=== PATIENT | female | born 1955 | race Caucasian/White ===

== ENCOUNTER 2016-06-07 11:35 | Emergency (ER) | payer BC ==
[2016-06-07 11:53] VITALS: BP 127/74
[2016-06-07] MEDS ORDERED: predniSONE TAB* 20 MG PO ONE (12:39)
--- NOTE | 2016-06-07 12:42 | UC ---
Respiratory Complaint HPI - HPI Summary HPI Summary: allergies (seasonal) started a week ago now with wheezing and productive cough her inhaler is - History of Current Complaint Chief Complaint: UCRespiratory Stated Complaint: SORE THROAT,EAR PAIN,COUGH Time Seen by Provider: 06/07/16 12:32 Hx Obtained From: Patient Onset/Duration: Gradual Onset, Lasting Days Timing: Constant Severity Initially: Mild Severity Currently: Moderate Pain Intensity: 2 Pain Scale Used: 0-10 Numeric Character: Cough: Productive Aggravating Factors: Allergens, Deep Breaths Alleviating Factors: Nothing Associated Signs And Symptoms: Positive: Wheezing, Nasal Congestion, Sinus Discomfort - Allergies/Home Medications Allergies/Adverse Reactions: Allergies Allergy/AdvReac Type Severity Reaction Status Date / Time Amoxicillin Allergy Hives Verified 06/07/16 12:42 seasonal Allergy Hives/Diff. Uncoded 06/07/16 11:54 Breathing/I tching dairy AdvReac Hives Uncoded 06/07/16 11:54 vegetables AdvReac Hives Uncoded 06/07/16 11:54 wheat AdvReac Hives Uncoded 06/07/16 11:54 Home Medications: Home Medications Albuterol HFA INHALER* [Ventolin HFA Inhaler*] 1 puff INH Q5M PRN 06/07/16 [ History Confirmed 06/07/16] Triamcinolone NASAL SPRAY* [Nasacort Aq Nasal [place]*] 1 spray NASAL DAILY [History Confirmed 06/07/16] PMH/Surg Hx/FS Hx/Imm Hx Endocrine History Of: Reports: Thyroid Disease Denies: Diabetes Cardiovascular History Of: Reports: Cardiac Disorders - extra heart beat- follows with cardiology Denies: Hypertension, Pacemaker/ICD Respiratory History Of: Reports: Asthma Denies: COPD GI/ History Of: Reports: Ulcer Cancer History Of: Denies: Breast Cancer - Surgical History Surgical History: Yes Surgery Procedure, Year, and Place: hysterectomy,LARINGOTOMY,T&A - Family History Known Family History: Positive: Hypertension, Diabetes Negative: Cardiac Disease - Social History Alcohol Use: None Substance Use Type: None, Prescribed Smoking Status (MU): Never Smoked Tobacco Review of Systems Constitutional: Negative Skin: Negative Eyes: Negative ENT: Dental Pain, Sore Throat, Ear Ache, Nasal Discharge Respiratory: Cough Cardiovascular: Negative Gastrointestinal: Negative Genitourinary: Negative Motor: Negative Neurovascular: Negative Musculoskeletal: Negative Neurological: Negative Psychological: Negative All Other Systems Reviewed And Are Negative: Yes Physical Exam Triage Information Reviewed: Yes Appearance: Well-Appearing, No Pain Distress, Well-Nourished Vital Signs: Initial Vital Signs Temp 98.3 F 06/07/16 11:46 Pulse 102 06/07/16 11:46 Resp 18 06/07/16 11:46 BP 127/74 06/07/16 11:46 Pulse Ox 100 06/07/16 11:46 Eyes: Positive: Conjunctiva Clear ENT: Positive: Nasal congestion, Nasal drainage, TM bulging, Other: - bilateral max sinus tenderness. Negative: Hearing grossly normal, Trismus, Muffled/ hoarse voice Neck: Positive: Supple, Nontender Respiratory: Positive: No respiratory distress, No accessory muscle use, Wheezing - pt declines breathing rx. Negative: Respiratory distress, Decreased breath sounds Cardiovascular: Positive: RRR, No Murmur Musculoskeletal: Positive: ROM Intact, No Edema Neurological: Positive: Alert Psychological Exam: Normal Skin Exam: Normal UC Diagnostic Evaluation - Laboratory O2 Sat by Pulse Oximetry: 100 - normal/not hypoxic Respiratory Course/Dx - Differential Dx/Diagnosis Provider Diagnoses: acute bronchitis with bronchospasm. allergic rhinnitis Discharge - Discharge Plan Condition: Stable Disposition: HOME Prescriptions: Albuterol HFA INHALER* [Ventolin HFA Inhaler*] 2 puff INH QID #1 mdi Azithromycin TAB* [Zithromax TAB*] 250 mg PO DAILY #6 tab Prednisone [Deltasone] 40 mg PO DAILY #10 tab Patient Education Materials: Acute Bronchitis (ED) Referrals: Humphrey Jim MD [Primary Care Provider] - 5 Days (if not better) Additional Instructions: recheck for new or worsening symptoms take your omeprazole while on prednisone
== END 2016-06-07 12:58 | disposition home or self-care (01) ==
LOC: UCCORT 11:35
DX: J20.9 Acute bronchitis, unspecified (principal); J45.909 Unspecified asthma, uncomplicated; Z88.1 Allergy status to other antibiotic agents; Z91.011 Allergy to milk products; Z91.018 Allergy to other foods
CPT/HCPCS: 99212; G0463; J7512